=== PATIENT | male | born 1975 | race African-American/Black ===

== ENCOUNTER 2024-11-15 14:13 | Outpatient (CLI) | payer OTHER | END 2024-11-15 14:14 | disposition home or self-care (01) | LOC: CSHCP 14:13 | PROVIDERS: ATTEND Family Medicine | DX: Z77.098 Contact with and (suspected) exposure to other hazardous, chiefly nonmedicinal, chemicals (principal) | CPT/HCPCS: 71250; 94010; 94726; 94729; 94760 ==